=== PATIENT | female | born 1985 | race Two or more races ===

== ENCOUNTER 2017-09-29 18:46 | Observation (INO) | payer MEDICAID ==
[~2017-09-29 18:46] MED LIST: PRENPAK46 OR
[2017-09-29 19:43] LABS: Urine Bacteria FEW /hpf (None Seen); Urine Blood Negative /uL (Negative); Urine Specific Gravity 1.008 (1.001-1.035); Urine WBC 26 /hpf (0 - 5)
== END 2017-09-29 20:16 | disposition home or self-care (01) | DRG 566 ==
LOC: LDRP 18:46
PROVIDERS: ADMIT Specialist; ATTEND Specialist
DX: O26.893 Other specified pregnancy related conditions, third trimester (principal); G43.909 Migraine, unspecified, not intractable, without status migrainosus; Z3A.36 36 weeks gestation of pregnancy
CPT/HCPCS: 59025; 81001; 81002; G0378

== ENCOUNTER 2018-01-15 22:30 | Emergency (ER) | payer MEDICAID ==
[~2018-01-15] VITALS: Ht 165.1 cm; Wt 86.2 kg
[2018-01-15 23:12] VITALS: BP 133/84
[2018-01-16 00:12] LABS: Urine Bacteria FEW /hpf (None Seen); Urine Blood 3+ /uL (Negative); Urine Mucus FEW (None Seen); Urine Specific Gravity 1.025 (1.001-1.035); Urine WBC 13 /hpf (0 - 5)
== END 2018-01-16 | disposition left against medical advice (07) ==
LOC: ER 22:30
DX: R35.0 Frequency of micturition (principal); Z53.21 Procedure and treatment not carried out due to patient leaving prior to being seen by health care provider
CPT/HCPCS: 81001

== ENCOUNTER 2024-02-24 20:50 | Emergency (ER) | payer MEDICAID ==
[~2024-02-24] VITALS: Ht 162.6 cm; Wt 84.5 kg
[2024-02-24] MEDS: SODIUM CHLORIDE 0.9% 1,000 ML IV ONE (21:00)
--- NOTE | 2024-02-24 21:35 | DVH ---
EXAM: CT HEAD WITHOUT CONTRAST INDICATION: head injury R parietal TECHNIQUE: CT of the head without intravenous contrast. Radiation Dose : 1. Head: CT Dose: CTDI volume is 50.34 mGy. Dose-length product is 807.17 mGy*cm The dose indicators for CT are the volume Computed Tomography (CT) Dose Index (CTDIvol) and the Dose Length Product (DLP), and are measured in units of mGy and mGy-cm, respectively. These indicators are not patient dose, but values generated from the CT scanner acquisition factors. The report includes radiation exposure data for exposures received during this examination. COMPARISON: None FINDINGS: There is no evidence of acute intracranial hemorrhage, extra-axial collection, mass effect, midline s hift, herniation or hydrocephalus. The ventricles, sulci and cisterns are age appropriate. The suarez-white differentiation is intact. Patchy periventricular and subcortical white matter hypoattenuation is nonspecific but may be related to small vessel ischemic disease. The visualized paranasal sinuses and mastoid air cells are clear. The surrounding soft tissues and osseous structures are unremarkable. IMPRESSION: 1. No acute intracranial abnormality. Radiation optimization: All CT scans at this facility use at least one of these dose optimization aldo hniques: automated exposure control mA and/or kV adjustment per patient size (includes targeted exam s where dose is matched to clinical indication) or iterative reconstruction.
[2024-02-24 21:37] VITALS: PULSE 99; RESP 16; TEMP 98.5; O2SAT 98
[2024-02-24 21:38] LABS: Basophils # (auto) 0 10 ^3/uL (0-0.2); Basophils % (auto) 0.4 % (0.0-2.0); Eosinophils # (auto) 0.2 10 ^3/uL (0-0.8); Eosinophils % (auto) 2.1 % (0.0-7.0); Hematocrit 39.6 % (36.0-46.0); Hemoglobin 13.8 g/dL (12.2-16.2); Lymphocytes # (auto) 4.3 10 ^3/uL (0.4-5.4); Lymphocytes % (auto) 37.4 % (10.0-50.0); Mean Corpuscular Hgb Conc. 34.8 g/dL (32.0-36.0); Mean Corpuscular Volume 92.1 fL (80.0-100.0); Monocytes # (auto) 0.6 10 ^3/uL (0-1.3); Monocytes % (auto) 5.4 % (0.0-12.0); Neutrophils # (auto) 6.3 10 ^3/uL (1.6-8.6); Neutrophils % (auto) 54.7 % (37.0-80.0); Nucleated Red Blood Cells % 0.2 %; Platelet Count (auto) 266 10^3/uL (140-450); White Blood Cell 11.5 10^3/uL (4.4-10.8)
--- NOTE | 2024-02-24 21:39 | ED.PDOC ---
History of Present Illness HPI Comments 38-year-old female with no significant past medical history brought in by family complaining of a head injury. Patient states she had been drinking alcohol this evening. She stood up, lost balance, became somewhat lightheaded, fell and hit the back of her head on a tile floor. She denies losing consciousness, however states her scalp began to bleed. She denies any vision changes, nausea, vomiting, focal weakness or other injury. Chief Complaint: Laceration Time Seen by MD: 20:51 Primary Care Provider: UNKNOWN Allergies: Coded Allergies: NO KNOWN ALLERGIES (Unverified , 09/23/13) Home Meds Active Scripts Bacitracin (Bacitracin Oint) 1 Applic Ap, 1 APPLIC TOP TID, #30 GM Prov:MILDRED CROCKETT MD 02/24/24 Ibuprofen Micronized (Ibuprofen) 800 Mg Tab, 800 MG PO Q8HP PRN, #30 TAB prn pain, take with food Prov:MILDRED CROCKETT MD 02/24/24 Acetaminophen (Tylenol Extra Strength) 500 Mg Tab, 1000 MG PO Q6HP PRN, #30 TAB prn pain Prov:MILDRED CROCKETT MD 02/24/24 Reported Medications W/O Vit A W/ Fe Carbo (PNV OB+DHA) Dread, 1 OR DAILY 12/24/14 Mode of Arrival: Ambulatory Past Medical History PAST MEDICAL HISTORY: Denies Surgical History: Denies all surgeries AUTO DISMANTLER History: No Pertinent AUTO DISMANTLER History Family History Family History: Reviewed,noncontributory to illness Social History Smoker: Non-Smoker Alcohol: Occasionally Drugs: Denies Drug Use Lives In: Home All Other Systems: Reviewed and Negative (Comprehensive systems review obtained and negative except for what is stated in the HPI.) Physical Exam General Appearance: Mild Distress HEENT: PERRL/EOMI, Other (Right parietal scalp soft tissue swelling and linear laceration with moderate hemorrhage) Neck: Full Range of Motion, Non-Tender, Normal Inspection, Supple Respiratory: Chest Non-Tender, Lungs Clear, No Accessory Muscle Use, No Respiratory Distress, Normal Breath Sounds Cardiovascular: No Edema, No JVD, Regular Rate/Rhythm Breast Exam: Deferred Gastrointestinal: Non Tender, Soft Genitalia: Deferred Pelvic: Deferred Rectal: Deferred Extremities: Normal inspection, Normal range of motion, Non-tender, No pedal edema Neurologic: Alert, No Motor Deficits, Normal Affect, Normal Mood, No Sensory Deficits Cerebellar Function: NOT DONE Reflexes: NOT DONE Skin: Dry, Normal Color, Warm, Other (Approximate 2 cm linear superficial laceration right posterior parietal scalp with underlying soft tissue swelling and moderate clotted blood on surrounding scalp) Lymphatic: NOT DONE Was a procedure done? Was a procedure done?: Yes Sedation Sedation?: No Laceration Repair : Location Right posterior parietal scalp Length 2 cm Anesthetic: Lidocaine Laceration Repair Prep: Saline, Betadine, by Irrigation Laceration Repair Wound Comple: epidermis/dermis repair Laceration Repair: [place] (2) Informed consent obtained: Yes Risks, benefits, and alternati: Yes EKG EKG : Comments Sinus tach, rate 105, normal intervals, normal axis, normal QRS, nonspecific T change. Differential Dx Considerations may include: Laceration, scalp contusion/hematoma, skull fracture, intracranial hemorrhage, arrhythmia, electrolyte imbalance, dehydration/hypovolemia, alcohol intoxication, infection such as UTI, , among others X-Ray, Labs, Meds, VS Vital Signs Date Time Temp Pulse Resp B/P (MAP) Pulse Ox O2 Delivery O2 Flow Rate FiO2 02/24/24 22:20 97 18 125/72 (89) 99 02/24/24 21:37 98.5 99 16 134/83 (100) 98 98.5 02/24/24 21:37 99 16 98 Room Air* 0 21 02/24/24 21:34 105 02/24/24 20:54 98.1 105 20 155/92 (113) 100 Lab Test 02/24/24 21:19 Range/Units White Blood Count 11.5 H 4.4-10.8 10^3/uL Red Blood Count 4.30 4.0-5.20 10^6/uL Hemoglobin 13.8 12.2-16.2 g/dL Hematocrit 39.6 36.0-46.0 % Mean Corpuscular Volume 92.1 80.0-100.0 fL Mean Corpuscular Hemoglobin 32.0 28.0-32.0 pg Mean Corpuscular Hemoglobin Concent 34.8 32.0-36.0 g/dL Red Cell Distribution Width 13.0 11.8-14.3 % Platelet Count 266 140-450 10^3/uL Mean Platelet Volume 9.0 6.9-10.8 fL Neutrophils (%) (Auto) 54.7 37.0-80.0 % Lymphocytes (%) (Auto) 37.4 10.0-50.0 % Monocytes (%) (Auto) 5.4 0.0-12.0 % Eosinophils (%) (Auto) 2.1 0.0-7.0 % Basophils (%) (Auto) 0.4 0.0-2.0 % Neutrophils # (Auto) 6.3 1.6-8.6 10 ^3/uL Lymphocytes # (Auto) 4.3 0.4-5.4 10 ^3/uL Monocytes # (Auto) 0.6 0-1.3 10 ^3/uL Eosinophils # (Auto) 0.2 0-0.8 10 ^3/uL Basophils # (Auto) 0 0-0.2 10 ^3/uL Nucleated Red Blood Cells 0.2 % Sodium Level 142 136-145 mmol/L Potassium Level 4.1 3.5-5.1 mmol/L Chloride Level 107 98-107 mmol/L Carbon Dioxide Level 27 20-31 mmol/L Anion Gap 8 5-15 Blood Urea Nitrogen 10 9-23 mg/dL Creatinine 0.69 0.550-1.02 mg/dL Glomerular Filtration Rate Calc 113 >90 mL/min BUN/Creatinine Ratio 14.5 10.0-20.0 Serum Glucose 111 H 74-106 mg/dL Calcium Level 9.5 8.7-10.4 mg/dL Troponin I High Sensitivity < 3 L </=34 ng/L Beta HCG, Quantitative 1.8 1.5-4.2 mIU/mL Plasma/Serum Blood Alcohol 5.2 <10 mg/dL Current Medications Medications (Trade) Dose Ordered Sig/Katherine Route Start Time Stop Time Status Last Admin Acetaminophen/ Hydrocodone Bitart ([place] 5/325MG Tab) 1 tab ONCE ONCE PO 02/24/24 21:00 02/24/24 21:01 DC 02/24/24 21:47 Diphtheria/ Tetanus/Acell Pertussis (Boostrix T-Dap) 0.5 ml ONCE ONCE IM 02/24/24 21:00 02/24/24 21:01 DC 02/24/24 21:49 Bacitracin 1 applic ONCE ONCE TOP 02/24/24 22:15 02/24/24 22:16 DC 02/24/24 22:15 PROCEDURE(s): HWOCT - HEAD WITHOUT CONTRAST REASON: head injury R parietal ORDER NUMBER(s): [id number], ACCESSION NUMBER(s): [id number] EXAM: CT HEAD WITHOUT CONTRAST INDICATION: head injury R parietal TECHNIQUE: CT of the head without intravenous contrast. Radiation Dose : 1. Head: CT Dose: CTDI volume is 50.34 mGy. Dose-length product is 807.17 mGy*cm The dose indicators for CT are the volume Computed Tomography (CT) Dose Index (CTDIvol) and the Dose Length Product (DLP), and are measured in units of mGy and mGy-cm, respectively. These indicators are not patient dose, but values generated from the CT scanner acquisition factors. The report includes radiation exposure data for exposures received during this examination. COMPARISON: None FINDINGS: There is no evidence of acute intracranial hemorrhage, extra-axial collection, mass effect, midline shift, herniation or hydrocephalus. The ventricles, sulci and cisterns are age appropriate. The suarez-white differentiation is intact. Patchy periventricular and subcortical white matter hypoattenuation is nonspecific but may be related to small vessel ischemic disease. The visualized paranasal sinuses and mastoid air cells are clear. The surrounding soft tissues and osseous structures are unremarkable. IMPRESSION: 1. No acute intracranial abnormality. Radiation optimization: All CT scans at this facility use at least one of these dose optimization techniques: automated exposure control mA and/or kV adjustment per patient size (includes targeted exams where dose is matched to clinical indication) or iterative reconstruction. X-Ray, Labs, Meds, VS Comment 38-year-old female with no significant past medical history presenting with a head injury after drinking alcohol, becoming somewhat lightheaded and falling Vitals remarkable for heart rate 105, BP 155/92 Exam remarkable for right posterior parietal scalp soft tissue swelling, tenderness and superficial approximate 2 cm laceration Rhythm strip independently interpreted by me: Sinus tach, rate 105, no ectopy. EKG: Sinus tach, rate 105, nonspecific T changes CT head unremarkable CBC, basic metabolic panel, troponin, hCG, UA unremarkable for any abnormality of acute significance Serum alcohol level 5.2 Patient treated with the following in the ED: 1 L 0.9 normal saline IV bolus was ordered, however patient declined IV fluids. Patient did receive [place] 5/325 mg p.o. The right posterior parietal scalp laceration was repaired kori. Please see procedure note for details. Hospitalization was considered, however patient had rapid improvement of her symptoms with treatment in the ED, and I no longer feel hospitalization is necessary. Patient appears stable for outpatient treatment and close follow-up with her primary doctor. Patient advised regarding workup findings, my impression, treatment plan and follow-up recommendations. She expressed understanding and agreed. Rx Tylenol, ibuprofen, bacitracin Time of 1ST Reevaluation: 21:38 Reevaluation 1ST: Improved Patient Education/Counseling: Diagnosis, Treatment, Need For Follow Up Family Education/Counseling: No Family Present Departure 1 Departure Time of Disposition: 22:00 Impression: Primary Impression: Head injury Qualified Codes: S09.90XA - Unspecified injury of head, initial encounter Additional Impression: Scalp laceration Qualified Codes: S01.01XA - Laceration without foreign body of scalp, initial encounter Disposition: HOME / SELF CARE / HOMELESS Condition: Stable Additional Instructions: Your head CT was unremarkable. Your blood tests were unremarkable. Follow-up with your primary doctor in 2 days for wound check. Return to ER or see your primary doctor in 7-10 days for staple removal. I have prescribed pain medication and antibiotic ointment. e-Prescriptions Bacitracin (Bacitracin Oint) 1 Applic Ap 1 APPLIC TOP TID, #30 GM Prov: MILDRED CROCKETT MD 02/24/24 Ibuprofen Micronized (Ibuprofen) 800 Mg Tab 800 MG PO Q8HP PRN, #30 TAB prn pain, take with food Prov: MILDRED CROCKETT MD 02/24/24 Acetaminophen (Tylenol Extra Strength) 500 Mg Tab 1000 MG PO Q6HP PRN, #30 TAB prn pain Prov: MILDRED CROCKETT MD 02/24/24 Discharged With: Relative Critical Care Note Critical Care Time?: No Stability Stability form required: No Heart Score Heart Score: Heart Score Response (Comments) Value History N/A 0 EKG N/A 0 Age N/A 0 Risk Factors N/A 0 Troponin N/A 0 Total 0 MILDRED CROCKETT MD Feb 24, 2024 21:39
[2024-02-24] MEDS: HYDROcodone-ACET 5/325MG TAB PO ONE (21:47)
[2024-02-24] MEDS: TETANUS-DIPTH-ACEL PERTUSSIS 0.5ML SYR Tdap IM ONE (21:49)
[2024-02-24 21:50] LABS: Chloride 107 mmol/L (98-107); Potassium 4.1 mmol/L (3.5-5.1); Sodium 142 mmol/L (136-145)
[2024-02-24 21:51] LABS: Anion Gap 8 (5-15); Carbon Dioxide 27 mmol/L (20-31)
[2024-02-24 21:52] LABS: Calcium 9.5 mg/dL (8.7-10.4)
[2024-02-24 21:57] LABS: BUN/Creatinine Ratio 14.5 (10.0-20.0); Blood Urea Nitrogen 10 mg/dL (9-23); Glucose 111 mg/dL (74-106)
[2024-02-24] MEDS: BACITRACIN TOP OINT 1 UD PKG TOP ONE (22:15)
[2024-02-24] MEDS ORDERED: BAC09TP TOP (22:15)
[2024-02-24] MEDS ORDERED: IBUP-1455 PO (22:15)
[2024-02-24] MEDS ORDERED: ACET-1304 PO (22:15)
[2024-02-24 22:20] VITALS: BP 125/72; PULSE 97; RESP 18; O2SAT 99
--- NOTE | 2024-02-25 14:40 | ECG ---
[facility] Test Date: 2024-02-24 Test Time: 21:31:32 Pat Name: BJORN WEBER Department: ER Room: Gender: F Top Taper Machine: VEENA : [id number] Requested By: MILDRED ROSADO Order Number: [id number] Reading MD: Yimi Diamond Measurements Intervals [place] Rate: 105 P: 65 NE: 199 QRS: 70 QRSD: 89 T: 56 QT: 346 QTc: 458 Interpretive Statements Sinus tachycardia Borderline prolonged NE interval Electronically Signed On 02-26-2024 8:26:27 PST by Yimi Diamond Please click the below link to view image of tracing.
== END 2024-02-24 22:22 | disposition home or self-care (01) ==
LOC: ER 20:50
DX: S01.01XA Laceration without foreign body of scalp, initial encounter (principal); R10.2 Pelvic and perineal pain; Z79.899 Other long term (current) drug therapy; W18.09XA Striking against other object with subsequent fall, initial encounter; Y93.89 Activity, other specified; Y92.89 Other specified places as the place of occurrence of the external cause; Y99.8 Other external cause status
CPT/HCPCS: 12001; 36415; 70450; 80048; 80320; 84484; 84702; 85025; 90471; 90715; 93005

== ENCOUNTER 2024-03-05 20:41 | Emergency (ER) | payer MEDICAID ==
[~2024-03-05] VITALS: Ht 162.6 cm; Wt 83.9 kg
[~2024-03-05 20:41] MED LIST changes: +ACET-1304 PO; +BAC09TP TOP; +IBUP-1455 PO
--- NOTE | 2024-03-05 23:34 | ED.PDOC ---
History of Present Illness(SKN HPI Comments 38-year-old female presents to ER for staple removal. Patient states she was seen and evaluated in ER here 10 days ago and had two kori placed to right side of scalp s/p laceration caused from a head injury and presents to ER today for staple removal. Denies any pain. Reports the wound appeared to heal well without any complication. Denies fever, skin drainage, headache, nausea/vomiting or any further symptoms/complaints Chief Complaint: Suture Removal Time Seen by MD: 20:55 Primary Care Provider: UNKNOWN History of Present Illness: Nurses Notes, Medications, Allergies Allergies: Coded Allergies: NO KNOWN ALLERGIES (Unverified , 09/23/13) Home Meds Active Scripts Bacitracin (Bacitracin Oint) 1 Applic Ap, 1 APPLIC TOP TID, #30 GM Prov:MILDRED CROCKETT MD 02/24/24 Ibuprofen Micronized (Ibuprofen) 800 Mg Tab, 800 MG PO Q8HP PRN, #30 TAB prn pain, take with food Prov:MILDRED CROCKETT MD 02/24/24 Acetaminophen (Tylenol Extra Strength) 500 Mg Tab, 1000 MG PO Q6HP PRN, #30 TAB prn pain Prov:MILDRED CROCKETT MD 02/24/24 Reported Medications W/O Vit A W/ Fe Carbo (PNV OB+DHA) Dread, 1 OR DAILY 12/24/14 Information Source: Patient Mode of Arrival: Ambulatory Past Medical History PAST MEDICAL HISTORY: Denies Surgical History: Denies all surgeries SPA SUPERVISOR History: No Pertinent SPA SUPERVISOR History Family History Family History: Unknown Social History Smoker: Non-Smoker Alcohol: Occasionally Drugs: Denies Drug Use Lives In: Home Constitutional: denies: chills, diaphoresis, fatigue, fever, malaise, sweats, weakness, others EENTM: denies: blurred vision, double vision, ear bleeding, ear discharge, ear drainage, ear pain, ear ringing, eye pain, eye redness, hearing loss, mouth pain, mouth swelling, nasal discharge, nose bleeding, nose congestion, nose pain, photophobia, tearing, throat pain, throat swelling, voice changes, others Respiratory: denies: cough, hemoptysis, orthopnea, SOB at rest, shortness of breath, SOB with excertion, stridor, wheezing, others Cardiovascular: denies: chest pain, dizzy spells, diaphoresis, Dyspnea on exertion, edema, irregular heart beat, left arm pain, lightheadedness, palpitations, PND, syncope, others Gastrointestinal: denies: abdomen distended, abdominal pain, blood streaked bowels, constipated, diarrhea, dysphagia, difficulty swallowing, hematemesis, melena, nausea, poor appetite, poor fluid intake, rectal bleeding, rectal pain, vomiting, others Genitourinary: denies: abnormal vagina bleeding, burning, dyspareunia, dysuria, flank pain, frequency, hematuria, incontinence, pain, , vagina discharge, urgency, others Neurological: denies: dizziness, fainting, headache, left sided numbness, left sided weakness, numbness, paresthesia, pre-existing deficit, right sided numbness, right sided weakness, seizure, speech problems, tingling, tremors, weakness, others Musculoskeletal: denies: back pain, gout, joint pain, joint swelling, muscle pain, muscle stiffness, neck pain, others Integumetry: reports: others (As stated in HPI) Allergic/Immunocompromised: denies: Difficulty Healing, Frequent Infections, Hives, Itching, others Hematologic/Lymphatic: denies: anemia, blood clots, easy bleeding, easy bruising, swollen glands, others Endocrine: denies: excessive hunger, excessive sweating, excessive thirst, excessive urination, flushing, intolerance to cold, intolerance to heat, unexplained weight gain, unexplained weight loss, others Psychiatric: denies: anxiety, bipolar disorder, depression, hopeless, panic disorder, schizophrenia, sleepless, suicidal, others Physical Exam General Appearance: No Apparent Distress HEENT: Normal ENT Inspection, PERRL/EOMI, Pharynx Normal, TMs Normal, Other (Two kori in place to healed wound of right parietal scalp. No signs of infection appreciated) Neck: Full Range of Motion, Non-Tender, Normal Respiratory: Chest Non-Tender, Lungs Clear, No Accessory Muscle Use, No Respiratory Distress, Normal Breath Sounds Cardiovascular: No Murmur, No Gallop, Regular Rate/Rhythm Breast Exam: Deferred Gastrointestinal: NOT DONE Genitalia: Deferred Pelvic: Deferred Rectal: Deferred Extremities: Normal capillary refill, Normal range of motion Neurologic: Alert, embedded software manager II-XII nml as Tested, No Motor Deficits, Normal Affect, Normal Mood, No Sensory Deficits Cerebellar Function: Normal Reflexes: Normal Skin: Dry, Normal Color, Warm Lymphatic: No Adenopathy Was a procedure done? Was a procedure done?: No Sedation Sedation?: No Differential Diagnosis (INTG) Differential Diagnosis: Abrasion Differential Diagnosis: Cellulitis, Open Fracture, Retained Foreign Body X-Ray, Labs, Meds, VS Vital Signs Date Time Temp Pulse Resp B/P (MAP) Pulse Ox O2 Delivery O2 Flow Rate FiO2 03/05/24 23:37 98.7 87 20 141/83 (102) 98 98.7 03/05/24 20:55 99.0 92 16 145/86 (105) 98 All kori removed at bedside without complication Previous chart visit was reviewed Advised to follow up with PCP in 1-2 days Patient verbalized understanding and agreeable with current plan of care Advised to return to ER immediately if symptoms worsen Time of 1ST Reevaluation: 23:12 Reevaluation 1ST: N/A Patient Education/Counseling: Diagnosis, Treatment, Prognosis, Need For Follow Up Family Education/Counseling: No Family Present Departure 1 Departure Time of Disposition: 23:32 Impression: Primary Impression: Scalp laceration Qualified Codes: S01.01XD - Laceration without foreign body of scalp, subsequent encounter Additional Impression: Removal of kori Disposition: 01 HOME / SELF CARE / HOMELESS Condition: Stable Discharged With: Self Critical Care Note Critical Care Time?: No Stability Stability form required: No Heart Score Heart Score: Heart Score Response (Comments) Value History N/A 0 EKG N/A 0 Age N/A 0 Risk Factors N/A 0 Troponin N/A 0 Total 0 ALEXANDRO HAWKINS Mar 05, 2024 23:34
[2024-03-05 23:37] VITALS: BP 141/83; PULSE 87; RESP 20; TEMP 98.7; O2SAT 98
== END 2024-03-05 23:42 | disposition home or self-care (01) ==
LOC: ER 20:41
DX: S01.01XD Laceration without foreign body of scalp, subsequent encounter (principal); X58.XXXD Exposure to other specified factors, subsequent encounter